=== PATIENT | male | born 1960 | race Caucasian/White ===

== ENCOUNTER 2018-04-05 14:48 | Outpatient (CLI) | payer OTHER ==
--- NOTE | 2018-04-05 15:32 | RAD ---
TWO VIEWS LEFT HIP: Comparison: None. History: Disability. Patient fall with left hip pain. FINDINGS: Two views of the left hip shows severe osteophyte formation in the left hip joint. Multiple erosions are seen on both sides of the hip. There is no evidence of acute fracture or dislocation. IMPRESSION: Severe left hip osteoarthritis. POS: [facility]
== END 2018-04-05 14:49 | disposition home or self-care (01) ==
LOC: NAV RAD 14:48
PROVIDERS: ATTEND Family Medicine
DX: M25.552 Pain in left hip (principal)